=== PATIENT | female | born 1995 | race Caucasian/White ===

== ENCOUNTER 2016-12-13 21:19 | Emergency (ER) | payer SELFPAY ==
--- NOTE | ~2016-12-13 | ER ---
[facility] 21 Y [address] ROOM: [place] [address] LOCATION: [facility] ADMIT DATE: 12/13/2016 ER/Outpatient Report DISCHARGE DATE: 12/13/2016 FAMILY PHYSICIAN: PHYSICIAN, NO ATTENDING PHYSICIAN: Hansel Zaman Time of Arrival: 2119 hours. Time of Evaluation: 4 hours. CHIEF COMPLAINT: Nausea, vomiting. HISTORY OF PRESENT ILLNESS: The patient is a 21-year-old female, who presents to the emergency department today with a chief complaint of nausea and vomiting. She reports this started about 2 days prior to arrival. Denies any fevers or chills. Does have some nausea and vomiting. She thinks she is about 12 weeks' . Denies any urinary frequency, urgency, or painful urination. PAST MEDICAL HISTORY: Kidney stones, ketotic hypoglycemia. PAST SURGICAL HISTORY: None. SOCIAL HISTORY: The patient denies any tobacco, alcohol, or illicit drug use. ALLERGIES: TO AMOXICILLIN, WHICH CAUSED HER RASH. MEDICATIONS: vitamins. PRIMARY CARE DOCTOR: Narendra. REVIEW OF SYSTEMS: All systems are reviewed by myself and are negative with the exception of those discussed in the HPI and past medical history. PHYSICAL EXAMINATION: VITAL SIGNS: Weight 75.8 kg, blood pressure 152/69, pulse 106, respiratory rate 18, temperature 99.7, oxygen saturation 98% on room air. GENERAL: The patient is a 21-year-old female, who appears stated age, in no PAT[facility]'S [facility] 21 Y [address] ROOM: [place] [address] LOCATION: [facility] ADMIT DATE: 12/13/2016 ER/Outpatient Report DISCHARGE DATE: 12/13/2016 FAMILY PHYSICIAN: PHYSICIAN, NO ATTENDING PHYSICIAN: Hansel Zaman acute distress at this time. HEENT: Head: Normocephalic, atraumatic. Pupils are equal, round, and reactive to light. Oropharynx is clear. Mucous membranes moist. NECK: Supple. There is no nuchal rigidity. CARDIOVASCULAR: Tachycardic. No murmurs, rubs, or gallops. LUNGS: Clear to auscultation bilaterally. No wheezes, rales, or rhonchi. ABDOMEN: Soft, nontender, and nondistended. No rebound, rigidity, or guarding. Positive bowel sounds. MUSCULOSKELETAL: The patient moves all 4 extremities. SKIN: Warm and dry. There are no rashes or lesions noted. LABORATORY DATA AND X-RAYS: CBC is unremarkable except for white blood cell count 11.2. CMP is unremarkable. LFTs normal. Urinalysis shows 250 glucose, 10 blood, moderate bacteria, 2-5 epithelials. A bedside ultrasound is performed by myself. It does reveal an intrauterine with a crown-rump length of 10 weeks 4 days. There is heart rate of 167. There is movement noted. IMPRESSION: 1. Hyperemesis gravidarum. 2. Intrauterine 10 weeks 4 days. 3. Initial visit. EMERGENCY DEPARTMENT COURSE: The patient was brought back to the examination room. Seen and evaluated by myself. IV is established. Laboratory analysis and imaging are obtained as described above. The patient was given 2 L of D5 NS. She was given 4 mg Zofran with complete resolution of her vomiting. She is tolerating p.o. I have discussed results with the patient. I have recommended close followup with [employer]MENT OPERATOR. I have discussed return to care instructions including any worsening symptoms or any other concerns to return to the emergency department as soon as possible. The patient is agreeable without further questions at this time. DISPOSITION,: The patient discharged home in good condition. DO ORTIZ RENTERIA/yossi PATIENT'S NAME: KATHERINE SHARP [facility] AGE: 21 Y [address] ROOM: [place] [address] LOCATION: [facility] ADMIT DATE: 12/13/2016 ER/Outpatient Report DISCHARGE DATE: 12/13/2016 FAMILY PHYSICIAN: PHYSICIAN, NO ATTENDING PHYSICIAN: Hansel Zaman /[id number] d: 12/14/16 0136 t: 12/15/16 0549, OUTPATIENT REPORT
[2016-12-13 22:02] LABS: BASOPHIL # 0.1 K/uL (0.0-0.2); BASOPHIL % 0.4 %; EOSINOPHIL # 0.1 K/uL (0.0-0.5); EOSINOPHIL % 0.4 %; HEMATOCRIT 39.3 % (33.0-46.0); HEMOGLOBIN 14.1 g/dL (11.0-15.0); IMMATURE GRANULOCYTE % 0.4 %; LYMPHOCYTE # 4.2 K/uL (0.8-4.0); LYMPHOCYTE % 37.5 %; MCH 31.1 pg (27.0-34.0); MCHC 35.9 gm/dL (32.0-36.5); MCV 86.6 fl (83.0-98.0); MONOCYTE # 0.7 K/uL (0.0-1.0); MONOCYTE % 6.6 %; MPV 10.3 fl (9.4-12.4); NEUTROPHIL # (ANC) 6.1 K/uL (1.8-7.8); NEUTROPHIL % 54.7 %; NRBC % 0 /100WBC (0-0.00); PLATELET COUNT 234 K/uL (150-450); RBC 4.54 M/uL (3.50-5.00); RDW-CV 12.3 % (11.9-14.6); WBC 11.2 K/uL (4.0-11.0)
[2016-12-13 22:17] LABS: ALBUMIN 3.9 gm/dL (3.5-5.0); ALK PHOS 51 IU/L (33-138); ALT 20 IU/L (12-78); BLOOD UREA NITROGEN 8 mg/dL (6-24); CALCIUM 9.4 mg/dL (8.5-10.5); CHLORIDE 108 mMol/L (96-110); CO2 23 mMol/L (22-32); CREATININE 0.6 mg/dL (0.5-1.1); SODIUM 139 mMol/L (135-145); TOTAL BILIRUBIN 0.2 mg/dL (0.0-1.5); TOTAL PROTEIN 7.4 g/dL (6.0-8.4)
[2016-12-13 22:18] LABS: ANION GAP 11.4 (10.0-19.0); AST 16 IU/L (10-40); POTASSIUM 3.4 mMol/L (3.7-5.1)
[2016-12-13 22:30] LABS: BILIRUBIN URINE NEGATIVE (NEGATIVE); BLOOD URINE 10 /UL (NEGATIVE); COLOR URINE YELLOW (YELLOW); GLUCOSE URINE 250 mg/dL (NEGATIVE); KETONE URINE NEGATIVE (NEGATIVE); LEUKOCYTES URINE NEGATIVE /UL (NEGATIVE); NITRITE URINE NEGATIVE (NEGATIVE); PROTEIN URINE NEGATIVE (NEGATIVE); TURBIDITY URINE CLEAR (CLEAR); UROBILINOGEN URINE NORMAL (NORMAL)
[2016-12-13 22:37] LABS: BACTERIA URINE MODERATE (NEGATIVE); RBC URINE 0-2 #/HPF (NEGATIVE); WBC URINE NEGATIVE #/HPF (NEGATIVE)
== END 2016-12-13 23:03 | disposition disaster alternative care site (69) ==
LOC: GMED 21:19
PROVIDERS: Emergency Medicine
DX: O21.0 Mild hyperemesis gravidarum (principal); E16.1 Other hypoglycemia; Z88.1 Allergy status to other antibiotic agents; Z3A.10 10 weeks gestation of pregnancy
CPT/HCPCS: J2405; J7042